=== PATIENT | male | born 1975 | race Caucasian/White ===

== ENCOUNTER 2016-03-29 17:42 | Emergency (ER) | payer SELFPAY ==
[~2016-03-29] VITALS: Ht 165.1 cm; Wt 55.3 kg
[~2016-03-29 17:42] MED LIST: Flexeril; HYDR1CAP2 PO; HYDR25CA5 PO; NAPR500T PO; NAPR500T3 PO; flexeril PO
--- OUTSIDE RECORDS SUMMARY | 2016-03-29 17:46 | XMS REPORT | Continuity of Care Document ---
Author Author [facility] Organization [facility] Address Unknown Phone Unavailable Care Team Providers Care Housing Property Manager Name Role Phone [facility] PCP Insurance Providers Payer Name Policy Number Subscriber Name Relationship Work Comp [id number] Emili Sims 20 Self / Same As Patient Advance Directives Directive Response Recorded Date/Time Advance Directives No 11/26/15 5:33am Health Care Power of Philosophy Specialist No 11/26/15 5:33am Organ Donor No 11/26/15 5:33am Resuscitation Status Full Code 11/26/15 5:33am Chief Complaint and Reason for Visit Chief Complaint General Problems/Pain Reason for Visit paracervical spasm Problems Active Problems Medical Problem Onset Date Status Anxiety hyperventilation Unknown Acute Anxiety hyperventilation Unknown Acute Muscle strain Unknown Acute Medications Current Home Medications Medication Dose Units Route Directions Days/Qty Instructions Start Date Naproxen 500 Mg 500 Mg Oral Twice A Day 60 11/26/15 [Flexeril] 10 Twice A Day 20 11/26/15 Past Home Medications Medication Directions Ordered Status Acetaminophen/Hydrocodone Bitart (Lorcet-Hd) 1 Each Capsule, 2 Each Oral Q6hr Prn 11/02/09 Discontinued Hydroxyzine Pamoate 25 Mg Capsule, 25 Mg Oral Every 6 Hours 11/19/13 Discontinued Naproxen 500 Mg Tablet, 500 Mg Oral Twice A Day as needed for Pain 07/27/15 Discontinued [Flexeril] , 5 Mg Oral Three Times A Day as needed for Pain 07/27/15 Discontinued Social History Social History Problem Response Recorded Date/Time Alcohol Use Denies Use 07/27/2015 2:33pm Recreational Drug Use No 07/27/2015 2:33pm Recent Foreign Travel No 11/26/2015 5:33am Recent Infectious Disease Exposure No 11/26/2015 5:33am Hospitalization with Isolation Denies 11/26/2015 5:33am Sexually Transmitted Disease No 11/26/2015 5:33am Smoking Status Current Everyday Smoker 11/26/2015 5:33am Type Used Cigarettes 11/26/2015 5:33am Recent Hopitalizations No 11/26/2015 5:33am Sexually Transmitted Disease No 11/26/2015 5:33am Hospitalization with Isolation Denies 11/26/2015 5:33am Query Response Start Date Stop Date Smoking Status Current Everyday Smoker Hospital Discharge Instructions No hospital discharge instructions. Plan of Care Discharge Date 11/26/15 7:22am Disposition 01 HOME, SELF-CARE Condition at Discharge Stable/Unchanged Instructions/Education Provided Cervical Spine Strain (ED) Prescriptions See Medication Section Referrals [facility] - Primary Care Physician Additional Instructions/Education All discharge instructions reviewed with patient and/or family. Voiced understanding. Use heat to the neck area every 4 hours. Keep in neutral position as discussed Take medications as prescribed You are to return to work Sunday. If you are unable to do so you need to be seen at occupational health. Functional Status No functional status results. Allergies, Adverse Reactions, Alerts No known allergies. Immunizations No immunization records. Vital Signs Acute Vital Signs Vital Response Date/Time Temperature (Fahrenheit) 96.0 degrees F (97.6 - 99.5) 11/26/2015 5:33am Temperature (Calculated Celsius) 35.68058 degrees C (36.4 - 37.5) 11/26/2015 5:33am Temperature Source Temporal 11/26/2015 5:33am Pulse Rate (adult) 50 bpm (60 - 90) 11/26/2015 7:25am Respiratory Rate 18 bpm (12 - 24) 11/26/2015 7:25am O2 Sat by Pulse Oximetry 99 % (88 - 100) 11/26/2015 7:25am Blood Pressure 114/79 mm Hg 11/26/2015 7:25am Blood Pressure Mean 99 mm Hg 11/26/2015 5:33am Pain Numeric Pain Scale 10-Worst Possible Pain 11/26/2015 5:33am Pain Numeric Pain Scale 10-Worst Possible Pain 11/26/2015 5:33am Height (Feet) 5 feet 11/26/2015 5:33am Height (Inches) 5 inches 11/26/2015 5:33am Height (Calculated Centimeters) 165.997271 cm 11/26/2015 5:33am Weight (Pounds) 117 pounds 11/26/2015 5:33am Weight (Calculated Kilograms) 53.422123 kilograms 11/26/2015 5:33am Capillary Refill Capillary Refill Less Than 3 Seconds 11/26/2015 5:33am Height 5 ft 5 in Weight 117 lb Body Mass Index 19.5 kg/m^2 Results No known relevant diagnostic tests, laboratory data and/or discharge summary. Procedures No known history of procedures. Encounters Encounter Location Arrival/Admit Date Discharge/Depart Date Attending Provider Departed Emergency Room [facility] 11/26/15 5:26am 11/25 7:22am ELVIRA MARINO MD Recent Diagnosis
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
[2016-03-29] MEDS ORDERED: HYDROcodone/APAP 5 MG/325 MG (LORTAB) TAB PO ONE (18:15)
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
[2016-03-29] MEDS ORDERED: flexeril PO (18:35)
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
[2016-03-29 18:42] VITALS: BP 125/74
== END 2016-03-29 18:42 | disposition home or self-care (01) ==
LOC: EDUNIT# 17:42 → ER 17:43
DX: S39.012A Strain of muscle, fascia and tendon of lower back, initial encounter (principal); S16.1XXA Strain of muscle, fascia and tendon at neck level, initial encounter; F17.210 Nicotine dependence, cigarettes, uncomplicated; V53.5XXA Driver of pick-up truck or van injured in collision with car, pick-up truck or van in traffic accident, initial encounter; Y92.414 Local residential or business street as the place of occurrence of the external cause; Y99.8 Other external cause status
CPT/HCPCS: 70450; 71010; 72100; 72125

== ENCOUNTER 2017-01-10 08:17 | Emergency (ER) | payer SELFPAY ==
[~2017-01-10] VITALS: Ht 167.6 cm; Wt 54.4 kg
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
--- OUTSIDE RECORDS SUMMARY | 2017-01-10 08:24 | XMS REPORT ---
Author Author LAN MAYA [facility] Address [address] [place] [address] Care Team Providers Care Title I Instructional Assistant Name Role Phone LAN MAYA Unavailable PROBLEMS Type Condition ICD9-CM Code [id number] Code Onset Dates Condition Status SNOMED Code Problem Disturbance of skin sensation 782.0 Active 519985320 Assessment Tooth abscess K04.7 Feb, Active 748874574 Problem Hemoptysis 786.30 Active 00950784 Problem Fatigue 780.79 Active 56201540 Problem Pain in joint, upper arm 719.42 Active 182786014 Problem Lumbago 724.2 Active 756418634 Problem Numbness in both hands 782.0 Active 797311970 Problem Numbness in both legs 782.0 Active 092154913 ALLERGIES Substance Reaction Event Type Date Status N.K.D.A. Unknown Non Drug Allergy Feb, Unknown SOCIAL HISTORY No smoking Hx information available PLAN OF CARE VITAL SIGNS Height 65 in 2016-03-02 Weight 122.9 lbs 2016-03-02 Heart Rate 72 bpm 2016-03-02 Respiratory Rate 16 2016-03-02 BMI 20.45 kg/m2 2016-03-02 Blood pressure systolic 110 mmHg 2016-03-02 Blood pressure diastolic 82 mmHg 2016-03-02 MEDICATIONS Medication Instructions Dosage Frequency Start Date End Date Duration Status Amoxicillin 500 MG Orally 3 times a day 1 capsule 8h Feb, Feb, 07 days Active RESULTS No Results PROCEDURES Procedure Date Ordered Related Diagnosis Body Site Office Visit, Est Pt., Level 2 Mar 02, 2016 IMMUNIZATIONS No Known Immunizations
--- OUTSIDE RECORDS SUMMARY | 2017-01-10 08:24 | XMS REPORT ---
Author Author LIZ Barcenas [facility] Address Unknown Care Team Providers Care Technical Support Internship Name Role Phone chinoLIZ Ricks Unavailable PROBLEMS Type Condition ICD9-CM Code [id number] Code Onset Dates Condition Status SNOMED Code Problem Disturbance of skin sensation 782.0 Active 490388646 Problem Fatigue 780.79 Active 71725733 Problem Hemoptysis 786.30 Active 20981259 Problem Lumbago 724.2 Active 608723081 Problem Pain in joint, upper arm 719.42 Active 664203166 Problem Numbness in both hands 782.0 Active 441999994 Problem Numbness in both legs 782.0 Active 976279228 ALLERGIES Substance Reaction Event Type Date Status N.K.D.A. Unknown Non Drug Allergy Mar, Unknown SOCIAL HISTORY No smoking Hx information available PLAN OF CARE Activity Details Follow Up prn Reason:1 hr multi te VITAL SIGNS MEDICATIONS Medication Instructions Dosage Frequency Start Date End Date Duration Status [place] 5-325 MG Orally every 6 hrs 1 tablet as needed 6h Mar, Mar, 4 days Active Amoxicillin 500 MG Orally 4 times a day 1 capsule 6h Mar, Mar, 7 days Active RESULTS No Results PROCEDURES Procedure Date Ordered Related Diagnosis Body Site COMP ORAL EVALUATION - NEW/EST PT Apr 04, 2016 PANORAMIC FILM SEE ALSO CODE 12409 Apr 04, 2016 IMMUNIZATIONS No Known Immunizations
[2017-01-10] MEDS ORDERED: ASPIRIN 81 MG CHEW (CHILDREN'S ASA) PO ONE (08:45)
[2017-01-10 08:52] LABS: BASOPHILS % (AUTO) 0 % (0-10); EOSINOPHILS # (AUTO) 0.1 10^3/uL (0.0-0.3); EOSINOPHILS % (AUTO) 2 % (0-10); LYMPHOCYTES # (AUTO) 1.3 X 10^3 (1.0-4.0); LYMPHOCYTES % (AUTO) 18 % (12-44); MEAN CORPUSCULAR HEMOGLOBIN 31 PG (25-34); MEAN CORPUSCULAR HGB CONC 34 G/DL (32-36); MEAN CORPUSCULAR VOLUME 89 FL (80-99); MEAN PLATELET VOLUME 9.7 FL (7.4-10.4); MONOCYTES # (AUTO) 0.8 X 10^3 (0.0-1.0); MONOCYTES % (AUTO) 11 % (0-12); NEUTROPHILS # (AUTO) 5.1 X 10^3 (1.8-7.8); NEUTROPHILS % (AUTO) 69 % (42-75); PLATELET COUNT 296 10^3/uL (130-400); RED BLOOD COUNT 4.71 10^6/uL (4.35-5.85); WHITE BLOOD COUNT 7.3 10^3/uL (4.3-11.0)
[2017-01-10 08:59] LABS: BILIRUBIN,URINE NEGATIVE (NEGATIVE); KETONES,URINE NEGATIVE (NEGATIVE); LEUKOCYTE ESTERASE ,URINE NEGATIVE (NEGATIVE); NITRITE,URINE NEGATIVE (NEGATIVE); PH,URINE 8 (5-9); PROTEIN,URINE NEGATIVE (NEGATIVE); UROBILINOGEN,URINE NORMAL (NORMAL)
[2017-01-10 09:01] LABS: INR 1.1 (0.8-1.4); PROTHROMBIN TIME PATIENT 14.3 SEC (12.2-14.7)
--- NOTE | 2017-01-10 09:03 | Diagnostic Imaging Report ---
Portable upright radiograph of the chest. INDICATION: Chest discomfort. FINDINGS: The lungs are clear. The heart size is normal. There is no effusion or pneumothorax. The mediastinum and ivonne appear unremarkable. IMPRESSION: Unremarkable exam. Dictated by: Dictated on workstation # [id number]
[2017-01-10 09:10] LABS: SQUAMOUS EPITHELIAL CELL,UR RARE /HPF
[2017-01-10 09:17] LABS: ALANINE AMINOTRANSFERASE 9 U/L (0-55); AMYLASE 46 U/L (25-125); ANION GAP 9 MMOL/L (5-14); ASPARTATE AMINO TRANSFERASE 12 U/L (5-34); BILIRUBIN,TOTAL 0.5 MG/DL (0.1-1.0); BLOOD UREA NITROGEN 11 MG/DL (7-18); BUN/CREATININE RATIO 14; CARBON DIOXIDE 20 MMOL/L (21-32); CHLORIDE 105 MMOL/L (98-107); CREATININE SERUM 0.81 MG/DL (0.60-1.30); GFR ESTIMATED > 60; GLUCOSE 107 MG/DL (70-105); LIPASE 17 U/L (8-78); MAGNESIUM 1.8 MG/DL (1.8-2.4); POTASSIUM 4.7 MMOL/L (3.6-5.0); SODIUM 134 MMOL/L (135-145)
[2017-01-10 09:23] LABS: MYOGLOBIN SERUM 25.4 NG/ML (10.0-92.0)
--- NOTE | 2017-01-10 09:49 | ED Chest Pain ---
General Chief Complaint: Chest Pain Stated Complaint: CHEST DISCOMFORT SINCE SUNDAY/GROIN PAIN Nursing Triage Note: PT CO OF CHEST PAIN EPIGASTRIC AREA AND L GROIN PAIN STARTED SUNDAY 1030AM AND HAS BEEN CONSTANT. STATES ATE SPAGHETTI BEFORE PAIN STARTED, DESCRIBES C/P THROBBING 01/02 AND L GROIN PAIN SHARP 12/03 Nursing Sepsis Screen: No Definite Risk Source: patient Exam Limitations: no limitations History of Present Illness Time seen by provider: 08:58 Initial Comments Here with complaint of epigastric pain that going on for a few days and also left groin pain that has been going on for months or longer. Reports taking ibuprofen several times daily for his teeth problem. 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 He states this makes the pain in his groin worse. Denies nausea or vomiting. Pain worsened after eating spaghetti the other day. Denies breathing problems. Timing/Duration: 2-3 days Severity/Quality: moderate, ingestion Location: substernal, epigastric Radiation: no radiation Activities at Onset: none Prior CP/Workup: no prior chest pain ASA po CURBSTONE SETTER: No NTG SL CURBSTONE SETTER: No Associated Symptoms: No abdominal pain, No back pain, No nausea/vomiting, No shortness of breath, No weakness Allergies and Home Medications Allergies Coded Allergies: No Known Drug Allergies (Unverified , 11/02/09) Home Medications No Active Prescriptions or Reported Meds Review of Systems Constitutional: see HPI, No chills, No fever EENTM: No Symptoms Reported Respiratory: No Symptoms Reported Cardiovascular: Chest Pain, Denies Lightheadedness, Denies Palpitations Gastrointestinal: See HPI, Abdominal Pain, Denies Diarrhea, Denies Nausea, Denies Vomiting Genitourinary: See HPI, Denies Discharge, Pain (left groin area) Musculoskeletal: no symptoms reported Skin: no symptoms reported Psychiatric/Neurological: No Symptoms Reported Endocrine: No Symptoms Reported All Other Systems Reviewed Negative Unless Noted: Yes Past Mggplej-Dcpbux-Byotrg Hx Patient Social History Alcohol Use: Rarely Uses Recreational Drug Use: No Smoking Status: Current Everyday Smoker Type Used: Cigarettes Recent Foreign Travel: No Contact w/Someone Who Travel: No Recent Infectious Disease Expo: No Recent Hopitalizations: No Physical Abuse: No Sexual Abuse: No Seasonal Allergies Seasonal Allergies: No Surgeries History of Surgeries: No Respiratory History of Respiratory Disorde: No Cardiovascular History of Cardiac Disorders: No Neurological History of Neurological Disord: No Reproductive System Hx Reproductive Disorders: No Sexually Transmitted Disease: No Gastrointestinal History of Gastrointestinal Di: No Musculoskeletal History of Musculoskeletal Dis: No Musculoskeletal Disorders: Rheumatoid Arthritis Endocrine History of Endocrine Disorders: No Cancer History of Cancer: No Psychosocial History of Psychiatric Problem: No Suicide Risk Score: 0 Integumentary History of Skin or Integumenta: No Blood Transfusions History of Blood Disorders: No Reviewed Nursing Assessment Reviewed/Agree w Nursing PMH: Yes Family Medical History Significant Family History: No Pertinent Family Hx Physical Exam Vital Signs Vital Sign - Last 12Hours 01/10/17 08:30 Temp 97.4 Pulse 67 Resp 12 B/P (MAP) 112/93 Pulse Ox 97 O2 Delivery Room Air Capillary Refill : Less Than 3 Seconds General Appearance: No Apparent Distress, WD/WN HEENT: PERRL/EOMI, Pharynx Normal, Other (very poor dentition overall) Neck: Non Tender, Supple Respiratory: Lungs Clear, Normal Breath Sounds Cardiovascular: Regular Rate, Rhythm, No Murmur Gastrointestinal: Non Tender, Soft Genital/Rectal: Normal Genital Exam, Other (mild tenderness to the left inguinal region without significant hernia noted and certainly no incarceration. ) Extremity: Normal Range of Motion, Non Tender Neurologic/Psychiatric: Alert, Oriented x3 Skin: Normal Color, Warm/Dry Progress/Results/Core Measures Results/Orders Lab Results Laboratory Tests Test 01/10/17 08:40 01/10/17 08:50 Range/Units White Blood Count 7.3 4.3-11.0 10^3/uL Red Blood Count 4.71 4.35-5.85 10^6/uL Hemoglobin 14.5 13.3-17.7 G/DL Hematocrit 42 40-54 % Mean Corpuscular Volume 89 80-99 FL Mean Corpuscular Hemoglobin 31 25-34 PG Mean Corpuscular Hemoglobin Concent 34 32-36 G/DL Red Cell Distribution Width 13.0 10.0-14.5 % Platelet Count 296 130-400 10^3/uL Mean Platelet Volume 9.7 7.4-10.4 FL Neutrophils (%) (Auto) 69 42-75 % Lymphocytes (%) (Auto) 18 12-44 % Monocytes (%) (Auto) 11 0-12 % Eosinophils (%) (Auto) 2 0-10 % Basophils (%) (Auto) 0 0-10 % Neutrophils # (Auto) 5.1 1.8-7.8 X 10^3 Lymphocytes # (Auto) 1.3 1.0-4.0 X 10^3 Monocytes # (Auto) 0.8 0.0-1.0 X 10^3 Eosinophils # (Auto) 0.1 0.0-0.3 10^3/uL Basophils # (Auto) 0.0 0.0-0.1 10^3/uL Prothrombin Time 14.3 12.2-14.7 SEC INR Comment 1.1 0.8-1.4 Activated Partial Thromboplast Time 29 24-35 SEC D-Dimer < 0.27 0.00-0.49 UG/ML Sodium Level 134 L 135-145 MMOL/L Potassium Level 4.7 3.6-5.0 MMOL/L Chloride Level 105 98-107 MMOL/L Carbon Dioxide Level 20 L 21-32 MMOL/L Anion Gap 9 5-14 MMOL/L Blood Urea Nitrogen 11 7-18 MG/DL Creatinine 0.81 0.60-1.30 MG/DL Estimat Glomerular Filtration Rate > 60 BUN/Creatinine Ratio 14 Glucose Level 107 H 70-105 MG/DL Calcium Level 9.0 8.5-10.1 MG/DL Magnesium Level 1.8 1.8-2.4 MG/DL Total Bilirubin 0.5 0.1-1.0 MG/DL Aspartate Amino Transf (AST/SGOT) 12 5-34 U/L Alanine Aminotransferase (ALT/SGPT) 9 0-55 U/L Alkaline Phosphatase 51 40-136 U/L Myoglobin 25.4 10.0-92.0 NG/ML Troponin I < 0.30 <0.30 NG/ML Total Protein 6.0 L 6.4-8.2 GM/DL Albumin 4.0 3.2-4.5 GM/DL Amylase Level 46 25-125 U/L Lipase 17 8-78 U/L Urine Color YELLOW Urine Clarity CLEAR Urine pH 8 5-9 Urine Specific [place] 1.010 L 1.016-1.022 Urine Protein NEGATIVE NEGATIVE Urine Glucose (UA) NEGATIVE NEGATIVE Urine Ketones NEGATIVE NEGATIVE Urine Nitrite NEGATIVE NEGATIVE Urine Bilirubin NEGATIVE NEGATIVE Urine Urobilinogen NORMAL NORMAL MG/DL Urine Leukocyte Esterase NEGATIVE NEGATIVE Urine RBC (Auto) NEGATIVE NEGATIVE Urine RBC NONE /HPF Urine WBC NONE /HPF Urine Squamous Epithelial Cells RARE /HPF Urine Crystals NONE /LPF Urine Bacteria NEGATIVE /HPF Urine Casts NONE /LPF Urine Mucus NEGATIVE /LPF Urine Culture Indicated NO My Orders Orders - CRISTA MORILLO MD Cbc With Automated Diff (01/10/17 08:35) Magnesium (01/10/17 08:35) Chest 1 View, Ap/Pa Only (01/10/17 08:35) Ekg Tracing (01/10/17 08:35) Cardiac Profile 1 (01/10/17 08:35) Comprehensive Metabolic Panel (01/10/17 08:35) Myoglobin Serum (01/10/17 08:35) Protime With Inr (01/10/17 08:35) Partial Thromboplastin Time (01/10/17 08:35) O2 (01/10/17 08:35) Monitor-Rhythm Ecg Trace Only (01/10/17 08:35) Lipid Panel (01/11/17 06:00) Aspirin Chewable Tablet (Baby Aspirin Ch (01/10/17 08:45) Saline Lock/Iv-Start (01/10/17 08:35) Lipase (01/10/17 08:35) Amylase (01/10/17 08:35) Fibrin Degradation Products (01/10/17 08:35) Ua Culture If Indicated (01/10/17 08:35) Medications Given in ED Current Medications Medications Dose Ordered Sig/Deyvi Route Start Time Stop Time Status Last Admin Dose Admin Aspirin 324 mg ONCE ONCE PO 01/10/17 08:45 01/10/17 08:46 DC 01/10/17 09:31 324 MG Vital Signs/I&O Vital Sign - Last 12Hours 01/10/17 01/10/17 08:30 08:30 Temp 97.4 Pulse 67 Resp 12 B/P (MAP) 112/93 Pulse Ox 97 O2 Delivery Room Air Blood Pressure Mean: 99 Progress Note : Progress Note Seen and evaluated. EKG and chest x-ray ordered. Labs ordered. Genital exam performed. No significant inguinal hernia currently but tender at the inguinal canal. ASA 324 mg by mouth given. Monitor patient. GI cocktail given. 1005: Pain improving. I did have a long discussion with the patient about ibuprofen use as I believe this is causing his epigastric pain. Patient instructed to follow-up with dentist MARY for his teeth as well as [facility] for further evaluation of his stomach pain and inguinal pain. Discharged home with return precautions. Patient verbalize understanding instructions and agreement with plan. ECG Initial ECG Impression Date: Jan 10, 2017 Initial ECG Impression Time: 08:38 Initial ECG Rate: 64 Initial ECG Rhythm: Normal Sinus Initial ECG Intervals: Normal Initial ECG Impression: Normal Initial ECG Comparisson: No Previous ECG Available Comment Sinus rhythm with normal axis. No evidence of ST elevation [place]. No previous available for comparison. Interpreted by me. Diagnostic Imaging Diagonstic Imaging: Xray Plain Films/CT/US/NM/MRI: chest Comments NAME: EMILI SIMS [facility] REC#: [id number] PT STATUS: REG ER : 1975 PHYSICIAN: CRISTA MORILLO MD ADMIT DATE: 01/10/17/ER Signed Date of Exam: 01/10/17 CHEST 1 VIEW, AP/PA ONLY Portable upright radiograph of the chest. INDICATION: Chest discomfort. FINDINGS: The lungs are clear. The heart size is normal. There is no effusion or pneumothorax. The mediastinum and ivonne appear unremarkable. IMPRESSION: Unremarkable exam. Dictated by: Dictated on workstation # [id number] Dict: 01/10/17 0854 Trans: 01/10/1751 Interpreted by: RK TOMLINSON MD Electronically signed by: RK TOMLINSON MD 01/10/1751 Reviewed: Reviewed by Me Departure Impression Impression: Primary Impression: Chest pain Qualified Codes: R07.9 - Chest pain, unspecified Additional Impressions: Epigastric abdominal pain Left groin pain Disposition: 01 HOME, SELF-CARE Condition: Stable Departure-Patient Inst. Decision time for Depature: 10:10 Referrals: [facility] (PCP/Family) Primary Care Physician Patient Instructions: Acid Reflux (Gastroesophageal Reflux Disease), Adult (DC) , Chest Pain (DC), Inguinal and Femoral (Groin) Hernias Add. Discharge Instructions: All discharge instructions reviewed with patient and/or family. Voiced understanding. You should avoid ibuprofen for the next few days. When you do take ibuprofen, do not exceed 800 mg every 8 hours and preferably 600 mg every 8 hours for pain. You may take Tylenol 1000 mg every 8 hours as he did for pain. Drink plenty of fluids. You should initiate [id number] omeprazole 20 mg daily for 4-6 weeks and then further directions of your physician. You may also take Pepcid 20 mg once or twice daily as needed for stomach upset. Return for worse pain, fever, vomiting, weakness, breathing problems or other concerns as needed. Scripts No Active Prescriptions or Reported Meds CRISTA MORILLO MD Jan 10, 2017 09:49
[2017-01-10] MEDS ORDERED: ANTACID SUSP 30 ML UDC (MYLANTA) PO ONE (10:15)
[2017-01-10] MEDS ORDERED: LIDOCAINE 2% VISCOUS 15 ML UDC PO ONE (10:15)
[2017-01-10 10:24] VITALS: BP 105/79
== END 2017-01-10 10:24 | disposition home or self-care (01) ==
LOC: EDUNIT# 08:17 → ER 08:19
DX: R10.13 Epigastric pain (principal); R10.32 Left lower quadrant pain; R07.2 Precordial pain; M06.9 Rheumatoid arthritis, unspecified; F17.210 Nicotine dependence, cigarettes, uncomplicated
CPT/HCPCS: 36415; 71010; 80053; 81000; 82150; 83690; 83735; 83874; 84484; 85025; 85379; 85610; 85730; 93005; 93041

== ENCOUNTER → 2017-06-20 | Outpatient (REF) ==
[~2017-06-20] MED LIST changes: +NAPR-1071 PO; +NAPR-915 PO; -NAPR500T PO; -NAPR500T3 PO
--- NOTE | 2017-06-20 11:25 | Diagnostic Imaging Report ---
INDICATION: Fall on to right shoulder and pain. TIME OF EXAM: 11:35 AM 3 views of the right shoulder were obtained. FINDINGS: The glenohumeral and acromioclavicular alignment are normal. Acromiohumeral space is normal. No fracture or dislocation is identified. IMPRESSION: No acute bony abnormality is detected. Dictated by: Dictated on workstation # [id number]
== END | disposition home or self-care (01) ==
LOC: OCC 11:06
PROVIDERS: ATTEND Nurse Practitioner Family
CPT/HCPCS: 73030

== ENCOUNTER 2019-02-17 07:03 | Emergency (ER) | payer SELFPAY ==
[~2019-02-17] VITALS: Ht 165.1 cm; Wt 51.3 kg
[2019-02-17 07:25] LABS: BASOPHILS % (AUTO) 1 % (0-10); EOSINOPHILS # (AUTO) 0.2 10^3/uL (0.0-0.3); EOSINOPHILS % (AUTO) 3 % (0-10); HEMATOCRIT 44 % (40-54); HEMOGLOBIN 14.9 G/DL (13.3-17.7); LYMPHOCYTES % (AUTO) 17 % (12-44); MEAN CORPUSCULAR HEMOGLOBIN 31 PG (25-34); MEAN CORPUSCULAR HGB CONC 34 G/DL (32-36); MEAN CORPUSCULAR VOLUME 90 FL (80-99); MONOCYTES # (AUTO) 0.7 X 10^3 (0.0-1.0); MONOCYTES % (AUTO) 12 % (0-12); NEUTROPHILS % (AUTO) 67 % (42-75); PLATELET COUNT 313 10^3/uL (130-400); RED CELL DISTRIBUTION WIDTH 13.2 % (10.0-14.5)
[2019-02-17 07:40] LABS: ALANINE AMINOTRANSFERASE 16 U/L (0-55); ALBUMIN 4.3 GM/DL (3.2-4.5); ALKALINE PHOSPHATASE 56 U/L (40-136); BILIRUBIN,TOTAL 0.3 MG/DL (0.1-1.0); BUN/CREATININE RATIO 12; CALCIUM 9.2 MG/DL (8.5-10.1); CARBON DIOXIDE 22 MMOL/L (21-32); CHLORIDE 105 MMOL/L (98-107); CREATININE SERUM 0.84 MG/DL (0.60-1.30); GFR ESTIMATED > 60; GLUCOSE 103 MG/DL (70-105); POTASSIUM 4.5 MMOL/L (3.6-5.0); SODIUM 138 MMOL/L (135-145)
[2019-02-17] MEDS ORDERED: KETOROLAC 30 MG/ML VIAL IVP STA (08:13)
[2019-02-17] MEDS ORDERED: LACTATED RINGERS 1,000 ML IV ONE (08:13)
--- NOTE | 2019-02-17 08:15 | ED General ---
General Chief Complaint: General Problems/Pain Stated Complaint: HEAD PAIN;CHEST PAIN Nursing Triage Note: AAMB TO ROOM C/O CHEST PAIN X 1 WEEK, HEADACEH SINCE YESTERDAY AND R ANKLE PIAN FOR 3 DAY'S NO INJURY Nursing Sepsis Screen: No Definite Risk Source of Information: Patient Exam Limitations: No Limitations History of Present Illness Date Seen by Provider: Feb 17, 2019 Time Seen by Provider: 07:59 Initial Comments Here with report of chest tightness for the last few days as well as headache since yesterday. Also complains of a variety of other pain complaints but those are vague. Denies nausea, vomiting, diarrhea but states he does urinate a lot. He did not mention the ankle pain to the as a concern did have a mild hernia that is still there that he was thinking about. It is not worse. Main concern is the chest discomfort Timing/Duration: 1 Week, Changing Over Time Severity: Moderate Associated Systoms: Cough; No Fever/Chills; Headaches; No Nausea/Vomiting, No Shortness of Air, No Weakness Allergies and Home Medications Allergies Coded Allergies: No Known Drug Allergies (Unverified , 11/02/09) Home Medications No Active Prescriptions or Reported Meds Patient Home Medication List Home Medication List Reviewed: Yes Review of Systems Review of Systems Constitutional: see HPI; No chills, No fever EENTM: no symptoms reported Respiratory: cough; No short of breath Cardiovascular: chest pain; No edema Gastrointestinal: No abdominal pain, No diarrhea, No nausea, No vomiting Genitourinary: see HPI Musculoskeletal: no symptoms reported Skin: no symptoms reported All Other Systems Reviewed Negative Unless Noted: Yes Past Rsmskju-Wefbmw-Swqrez Hx Past Med/Social Hx: Reviewed Nursing Past Med/Soc Hx Patient Social History Alcohol Use: Occasionally Uses Recreational Drug Use: No Smoking Status: Current Everyday Smoker Type Used: Cigarettes Recent Foreign Travel: No Contact w/Someone Who Travel: No Recent Infectious Disease Expo: No Recent Hopitalizations: No Seasonal Allergies Seasonal Allergies: No Past Medical History Surgeries: No Respiratory: No Cardiac: No Neurological: No Reproductive Disorders: No Sexually Transmitted Disease: No Gastrointestinal: No Musculoskeletal: No Rheumatoid Arthritis Endocrine: No Cancer: No Psychosocial: No Integumentary: No Blood Disorders: No Family Medical History Reviewed Nursing Family Hx No Pertinent Family Hx Physical Exam Vital Signs Vital Signs - First Documented 02/17/19 07:04 Temp 36.1 Pulse 62 Resp 18 B/P (MAP) 127/78 (94) Capillary Refill : Less Than 3 Seconds Height, Weight, BMI Height: 5'6.00" Weight: 120lbs. oz. 54.366001js; 18.00 BMI Method:Estimated General Appearance: No Apparent Distress, WD/WN HEENT: PERRL/EOMI, Pharynx Normal Neck: Non Tender, Supple Respiratory: Lungs Clear, Normal Breath Sounds Cardiovascular: Regular Rate, Rhythm, No Murmur Back: Normal Inspection, No CVA Tenderness, No Vertebral Tenderness Extremity: Normal Range of Motion, Non Tender Neurologic/Psychiatric: Alert, Oriented x3 Skin: Normal Color, Warm/Dry Progress/Results/Core Measures Suspected Sepsis Recent Fever Within 48 Hours: No Infection Criteria Present: None New/Unexplained Altered Menta: No Sepsis Screen: No Definite Risk SIRS Temperature: Pulse: 62 Respiratory Rate: 18 Laboratory Tests 02/17/19 07:11: White Blood Count 6.0 Blood Pressure 127 /78 Mean: 94 Laboratory Tests 02/17/19 07:11: Creatinine 0.84, Platelet Count 313, Total Bilirubin 0.3 Results/Orders Lab Results Laboratory Tests Test 02/17/19 07:11 02/17/19 08:10 Range/Units White Blood Count 6.0 4.3-11.0 10^3/uL Red Blood Count 4.88 4.35-5.85 10^6/uL Hemoglobin 14.9 13.3-17.7 G/DL Hematocrit 44 40-54 % Mean Corpuscular Volume 90 80-99 FL Mean Corpuscular Hemoglobin 31 25-34 PG Mean Corpuscular Hemoglobin Concent 34 32-36 G/DL Red Cell Distribution Width 13.2 10.0-14.5 % Platelet Count 313 130-400 10^3/uL Mean Platelet Volume 9.0 7.4-10.4 FL Neutrophils (%) (Auto) 67 42-75 % Lymphocytes (%) (Auto) 17 12-44 % Monocytes (%) (Auto) 12 0-12 % Eosinophils (%) (Auto) 3 0-10 % Basophils (%) (Auto) 1 0-10 % Neutrophils # (Auto) 4.0 1.8-7.8 X 10^3 Lymphocytes # (Auto) 1.0 1.0-4.0 X 10^3 Monocytes # (Auto) 0.7 0.0-1.0 X 10^3 Eosinophils # (Auto) 0.2 0.0-0.3 10^3/uL Basophils # (Auto) 0.0 0.0-0.1 10^3/uL Sodium Level 138 135-145 MMOL/L Potassium Level 4.5 3.6-5.0 MMOL/L Chloride Level 105 98-107 MMOL/L Carbon Dioxide Level 22 21-32 MMOL/L Anion Gap 11 5-14 MMOL/L Blood Urea Nitrogen 10 7-18 MG/DL Creatinine 0.84 0.60-1.30 MG/DL Estimat Glomerular Filtration Rate > 60 BUN/Creatinine Ratio 12 Glucose Level 103 70-105 MG/DL Calcium Level 9.2 8.5-10.1 MG/DL Corrected Calcium 9.0 8.5-10.1 MG/DL Total Bilirubin 0.3 0.1-1.0 MG/DL Aspartate Amino Transf (AST/SGOT) 17 5-34 U/L Alanine Aminotransferase (ALT/SGPT) 16 0-55 U/L Alkaline Phosphatase 56 40-136 U/L Troponin I < 0.028 <0.028 NG/ML Total Protein 7.0 6.4-8.2 GM/DL Albumin 4.3 3.2-4.5 GM/DL Urine Color YELLOW Urine Clarity CLEAR Urine pH 7.0 5-9 Urine Specific [place] 1.010 L 1.016-1.022 Urine Protein NEGATIVE NEGATIVE Urine Glucose (UA) NEGATIVE NEGATIVE Urine Ketones NEGATIVE NEGATIVE Urine Nitrite NEGATIVE NEGATIVE Urine Bilirubin NEGATIVE NEGATIVE Urine Urobilinogen 0.2 < = 1.0 MG/DL Urine Leukocyte Esterase NEGATIVE NEGATIVE Urine RBC (Auto) NEGATIVE NEGATIVE Urine RBC NONE /HPF Urine WBC NONE /HPF Urine Crystals NONE /LPF Urine Bacteria NEGATIVE /HPF Urine Casts NONE /LPF Urine Mucus NEGATIVE /LPF Urine Culture Indicated NO Micro Results Microbiology 02/17/19 Influenza Types A,B Antigen (MIKAEL) - Final, Complete My Orders Orders - CRISTA MORILLO MD Ed Iv/Invasive Line Start (02/17/19 07:18) Ekg Tracing (02/17/19 07:18) Chest Pa/Lat (2 View) (02/17/19 07:18) Cbc With Automated Diff (02/17/19 07:18) Comprehensive Metabolic Panel (02/17/19 07:18) Troponin I (02/17/19 07:18) Influenza A And B Antigens (02/17/19 07:18) Ua Culture If Indicated (02/17/19 08:01) Ed Iv/Invasive Line Start (02/17/19 08:13) Lactated Ringers (Lr 1000 Ml Iv Solution (02/17/19 08:13) Ketorolac Injection (Toradol Injection) (02/17/19 08:13) Acetaminophen Tablet/Caplet (Tylenol T (02/17/19 09:12) Medications Given in ED Current Medications Medications Dose Ordered Sig/Deyvi Route Start Time Stop Time Status Last Admin Dose Admin Lactated Ringer's 1,000 ml @ 0 mls/hr Q0M ONCE IV 02/17/19 08:13 02/17/19 08:15 DC 02/17/19 08:18 1,000 MLS/HR Vital Signs/I&O 02/17/19 07:04 Temp 36.1 Pulse 62 Resp 18 B/P (MAP) 127/78 (94) Capillary Refill : Less Than 3 Seconds Blood Pressure Mean: 94 POS Progress Note : Progress Note Seen and evaluated. IV, labs, EKG and chest x-ray ordered. Influenza screen ordered. Monitor patient. His main complaint is related to headache and chest discomfort. We will focus on that. I discussed that with the patient as well as follow-up. He usually follows up with community health. He is walking without difficulty and walked to and from the bathroom without pain or difficulty. He is not limping. He is not having any pain when transitioning from lying to standing. Vital signs within normal. 0815: Toradol 30 mg IV for headache and LR 1 L bolus. Monitor patient. 0930: Tylenol 650 mg by mouth. No acute findings on any of the evaluation. All of it is normal. I did discuss this with the patient. I instructed him for follow-up community health. Discharged home with return precautions. Patient verbalize understanding instructions and agreement with plan ECG Initial ECG Impression Date: Feb 17, 2019 Initial ECG Impression Time: 07:27 Initial ECG Rate: 60 Initial ECG Rhythm: Normal Sinus Initial ECG Impression: Normal Initial ECG Comparisson: Unchanged Comment Normal sinus rhythm with normal axis. No evidence of ST elevation [place]. Similar to previous of 01/10/17. Interpreted by me. Diagnostic Imaging Diagonstic Imaging: Xray Plain Films/CT/US/NM/MRI: chest Comments [facility]. POS [place], [place] POS NAME: EMILI SIMS [facility] REC#: [id number] PT STATUS: REG ER : 1975 PHYSICIAN: CRISTA MORILLO MD ADMIT DATE: 02/17/19/ER Draft POSDate of Exam:02/17/19 CHEST PA/LAT (2 VIEW) INDICATION: Head and chest pain. FINDINGS: There is air trapping in a symmetric fashion with flattening of the diaphragms and mild expansion of the retrosternal airspaces. No bronchiectasis. No significant airway thickening or peribronchial cuffing. No pneumonia. No effusion, pneumothorax, or pneumomediastinum. IMPRESSION: Clear mildly hyperexpanded lungs; otherwise, negative. Dictated on workstation # [id number] Dict: 02/17/19 0837 Trans: 02/17/19 0842 [id number] Interpreted by: RHONDA DUFFY Electronically signed by: Departure Impression Primary Impression: Myalgia Additional Impression: Chest pain Qualified Codes: R07.9 - Chest pain, unspecified Disposition: 01 HOME, SELF-CARE Condition: Stable Departure-Patient Inst. Decision time for Depature: 09:49 Referrals: [facility] (PCP/Family) Primary Care Physician Patient Instructions: Chest Pain (DC), Muscle and Bone Pain (DC) Add. Discharge Instructions: All discharge instructions reviewed with patient and/or family. Voiced understanding. You may take ibuprofen 600 mg every 8 hours as needed for pain. He may take Tylenol/acetaminophen 1000 mg every 8 hours as needed for pain. Follow up with [facility] for recheck and further evaluation and for further care regarding your ankle and your hernia as needed. Return for worse pain, fever, vomiting, weakness, breathing problems or other concerns as needed. Scripts No Active Prescriptions or Reported Meds Work/School Note: Work Release Form Date Seen in the Emergency Department: Feb 17, 2019 Return to Work: Feb 18, 2019 Restrictions: No Restrictions CRISTA MORILLO MD Feb 17, 2019 08:15 POS
[2019-02-17 08:20] LABS: BILIRUBIN,URINE NEGATIVE (NEGATIVE); CLARITY,URINE CLEAR; COLOR,URINE YELLOW; GLUCOSE, URINE (UA) NEGATIVE (NEGATIVE); KETONES,URINE NEGATIVE (NEGATIVE); LEUKOCYTE ESTERASE ,URINE NEGATIVE (NEGATIVE); NITRITE,URINE NEGATIVE (NEGATIVE); PROTEIN,URINE NEGATIVE (NEGATIVE)
[2019-02-17 08:27] LABS: BACTERIA,URINE NEGATIVE /HPF
--- NOTE | 2019-02-17 08:42 | Diagnostic Imaging Report ---
INDICATION: Head and chest pain. FINDINGS: There is air trapping in a symmetric fashion with flattening of the diaphragms and mild expansion of the retrosternal airspaces. No bronchiectasis. No significant airway thickening or peribronchial cuffing. No pneumonia. No effusion, pneumothorax, or pneumomediastinum. IMPRESSION: Clear mildly hyperexpanded lungs; otherwise, negative. Dictated by: Dictated on workstation # [id number]
--- NOTE | 2019-02-17 09:05 | NUR ---
REPORTS THAT PAIN NOT ANY BETTER AFTER TORDOL. FLUIDS INFUSED.
[2019-02-17] MEDS ORDERED: ACETAMINOPHEN 325 MG TABLET PO STA (09:12)
[2019-02-17 09:55] VITALS: BP 129/96
== END 2019-02-17 09:55 | disposition home or self-care (01) ==
LOC: EDUNIT# 07:03 → ER 07:04
DX: R07.89 Other chest pain (principal); M79.10 Myalgia, unspecified site; M06.9 Rheumatoid arthritis, unspecified; F17.210 Nicotine dependence, cigarettes, uncomplicated
CPT/HCPCS: 36415; 71046; 80053; 81000; 84484; 85025; 87804; 93005; 96361; 96374

== ENCOUNTER 2019-05-09 05:33 | Outpatient (CLI) | payer OTHER ==
[~2019-05-09] VITALS: Ht 165 cm; Wt 54.0 kg
== END 2019-05-09 10:34 | disposition home or self-care (01) ==
LOC: PREOP 05:33
PROVIDERS: ATTEND Surgery
DX: Z01.818 Encounter for other preprocedural examination (principal)

== ENCOUNTER 2019-05-15 07:50 | Day surgery (SDC) | payer OTHER ==
[2019-05-15] VITALS (9 sets, daily range): BP systolic 98–118; BP diastolic 66–88
[~2019-05-15] VITALS: Ht 165 cm; Wt 54.0 kg
--- NOTE | 2019-05-15 08:03 | Progress Note-Pre Operative ---
Pre-Operative Progress Note H&P Reviewed The H&P was reviewed, patient examined and no changes noted. Date Seen by Provider: May 15, 2019 Time Seen by Provider: 08:03 Date H&P Reviewed: May 15, 2019 Time H&P Reviewed: 08:03 Pre-Operative Diagnosis: left inguinal hernia ENMANUEL ALEJANDRA DO May 15, 2019 08:03
[2019-05-15] MEDS ORDERED: LACTATED RINGERS 1,000 ML IV PRN (08:11)
[2019-05-15] MEDS ORDERED: ceFAZolin INJECTION 1,000 MG in WATER (STERILE) FOR INJECTION 10 ML IV ONE (08:15)
[2019-05-15] MEDS ORDERED: proPOfol 200 MG/20 ML (DIPRIVAN) VIAL IV ONE (08:40)
[2019-05-15] MEDS ORDERED: NEOSTIGMINE 3 MG/3 ML VIAL ONE (08:40)
[2019-05-15] MEDS ORDERED: ROCURONIUM 10 MG/ML 5 ML SYRINGE IV ONE (08:40)
[2019-05-15] MEDS ORDERED: GLYCOPYRROLATE 0.2 MG/ML (ROBINUL) 2 ML VIAL ONE (08:40)
[2019-05-15] MEDS ORDERED: SEVOFLURANE (ULTANE) 15 ML INHAL SOLN ONE ×2 (08:40→10:13)
[2019-05-15] MEDS ORDERED: MIDAZOLAM 2 MG/2 ML (VERSED) VIAL ONE (08:40)
[2019-05-15] MEDS ORDERED: DEXAMETHASONE 10 MG/ML (DECADRON) 1 ML VIAL ONE (08:40)
[2019-05-15] MEDS ORDERED: LIDOCAINE PF 2% 5 ML (XYLOCAINE) VIAL ONE (08:40)
[2019-05-15] MEDS ORDERED: ONDANSETRON 4 MG/2 ML (SDV) Z0FRAN ONE (08:40)
[2019-05-15] MEDS ORDERED: fentaNYL INJECTION 100 MCG/2 ML AMP ONE (08:40)
[2019-05-15] MEDS ORDERED: BUP/EPI 0.5% 1:200,000 (SENSORCAINE) 30 ML VIAL ONE (08:45)
--- NOTE | 2019-05-15 10:19 | Progress Note-Post Operative ---
Post-Operative Progess Note Surgeon (s)/Hook Puller (s) Surgeon ENMANUEL ALEJANDRA DO Hook Puller: Dr. Meyers Pre-Operative Diagnosis left inguinal hernia Post-Operative Diagnosis direct inguinal hernia Procedure & Operative Findings Date of Procedure 05/15/19 Procedure Performed/Findings open left inguinal hernia repari Anesthesia Type gen Estimated Blood Loss Estimated blood loss (mL): min Specimens/Packing Specimens Removed na ENMANUEL ALEJANDRA DO May 15, 2019 10:19
[2019-05-15] MEDS ORDERED: ACHD5005 PO (10:20)
[2019-05-15] MEDS ORDERED: DOCU-143 PO (10:20)
--- NOTE | 2019-05-15 10:21 | Discharge Inst-Simple/Standard ---
Discharge Inst-Standard Discharge Medications New, Converted or Re-Newed RX: RX on Chart Patient Instructions/Follow Up Plan of Care/Instructions/FU: 2 weeks Lucio Activity as Tolerated: No Discharge Diet: Regular Diet Other Inst to Patient Follow up Appt: Make appointment for 2 week. Instructions: No lifting greater than 10 pounds. No strenuous activity. May shower in 24 hours, no tub bath or soaking. Use incentive spirometer at home as directed. No Smoking Skin/Wound Care: You have special glue over incision it will fall off on its own. Symptoms to Report: Appetite Changes, Extremity Discoloration, Numbness/Tingling, Swelling Increased, Bleeding Excessive, Eyesight Changes, Pain Increased, Urine Color Change, Constipation(Persistent), Fever over 101 degree F, Pain/Pressure in chest, Urinating Difficulty, Cough Up/Vomit Blood, Heart Beat Irreg/Pounding, Pain/Pressure in jaw, Vaginal Bleeding Increase, Cramps in feet or legs, Lightheadedness, Pain/Pressure in shoulder, Diarrhea(Persistent), Memory Changes Suddenly, Questions/Concerns, Weight gain consecutive days, Dizziness/Fainting, Nausea/Vomiting, Shortness of Breath, Weight gain over 2 pounds If questions or concerns contact your physician Or seek help at emergency department. ENMANUEL LUCIO DO May 15, 2019 10:21
[2019-05-15] MEDS ORDERED: PROMETHAZINE INJ 25 MG/ML (PHENERGAN) AMP IVP ONE (10:45)
[2019-05-15] MEDS ORDERED: HYDROmorphone 2 MG/ML VIAL (DILAUDID) IV ONE (10:45)
[2019-05-15] MEDS ORDERED: MEPERIDINE (DEMEROL) INJ 50 MG/ML IVP ONE (10:45)
[2019-05-15] MEDS ORDERED: morphine INJ 10 MG/ML 1ML (SYR OR VIAL) IVP ONE (10:45)
[2019-05-15] MEDS ORDERED: ONDANSETRON 4 MG/2 ML (SDV) Z0FRAN IVP PRN (10:45)
--- NOTE | 2019-05-15 19:15 | OPERATIVE REPORT ---
DATE OF SERVICE: 05/15/2019 PREOPERATIVE DIAGNOSIS: Left inguinal hernia. POSTOPERATIVE DIAGNOSIS: Left direct inguinal hernia. PROCEDURE: Open left direct inguinal hernia repair. SURGEON: Enmanuel Lucio DO RAILROAD TRACK INSPECTOR: Dr. Meyers assisted in retraction, dissection, and closure. ANESTHESIA: General. ESTIMATED BLOOD LOSS: Minimal. COMPLICATIONS: None. INDICATIONS: The patient is a 43-year-old male with left inguinal hernia. He understands risks and benefits of procedure and wished to proceed with procedure. Consent was signed in the chart. DESCRIPTION OF PROCEDURE: The patient was taken to the operating suite, was prepped and draped in sterile fashion. Surgical pause was performed. Local anesthetic was infiltrated and a 15 blade scalpel was used to make a skin incision in the left lower quadrant. Cautery was used to dissect down the external oblique, which was then opened down through the external ring. The spermatic cord was then dissected around. Ashlee drain was placed around it and was retracted out of the way. No indirect hernia present. There was a direct defect present. Contents were reduced. The transversalis fascia was then sutured to the shelving edge using 2-0 Vicryl. A ProGrip mesh was then cut to size, which was then secured to Alex's ligament and then incorporated around the spermatic cord in the usual fashion and placed under the external oblique. The wound was then irrigated with copious amounts of irrigation. The external oblique was then closed using 3-0 Vicryl in running fashion recreating the external ring. The subcutaneous tissue was then reapproximated with 3-0 Vicryl and the skin was then closed using 4-0 Monocryl in a running subcuticular fashion. The area was then washed and dried and sterile bandages were applied. The abdomen was then washed and dried, Skin Affix was placed over the incisions. The patient tolerated procedure well without any complications. He was taken to the recovery room in stable condition. Job ID: [id number] DocumentID: [id number] Dictated Date: 05/15/2019 13:38:02 Sales Management Intern Date: 05/15/2019 19:13:54 Dictated By: ENMANUEL LUCIO DO
--- NOTE | 2019-05-20 08:43 | Anesthesia-General Post-Op ---
General Significant Intra-Op Events Notes late entry Post Op Complications Complications None Follow Up Care/Instructions Patient Instructions None needed. Anesthesia/Patient Condition Patient Condition Patient is doing well, no complaints, stable vital signs, no apparent adverse anesthesia problems. No complications reported per nursing. DEEP COSME CRNA May 20, 2019 08:43
== END 2019-05-15 12:15 | disposition home or self-care (01) ==
LOC: SDC 07:50
PROVIDERS: ATTEND Surgery
DX: K40.90 Unilateral inguinal hernia, without obstruction or gangrene, not specified as recurrent (principal); F17.210 Nicotine dependence, cigarettes, uncomplicated; Z79.899 Other long term (current) drug therapy; Z82.49 Family history of ischemic heart disease and other diseases of the circulatory system; Z80.0 Family history of malignant neoplasm of digestive organs
CPT/HCPCS: 87081

== ENCOUNTER → 2020-01-29 | Outpatient (CLI) | payer SELFPAY ==
[~2020-01-29] MED LIST changes: +ACHD5005 PO; +DOCU-143 PO; +HOLD METFORMIN - RECEIVED CONTRAST 20 ML VIAL IV SCH; +IOHEXOL 350 MG/ML 100 ML (OMNIPAQUE 350) VIAL IV ONE; +NS 100 ML (IVPB) BAG IV ONE
--- NOTE | 2020-01-29 10:33 | Diagnostic Imaging Report ---
PROCEDURE: CT head with and without contrast. TECHNIQUE: Multiple contiguous axial images were obtained through the brain before and after the administration of intravenous contrast. Auto Exposure Controls were utilized during the CT exam to meet ALARA standards for radiation dose reduction. INDICATION: Bilateral arm numbness, tingling, difficulty with speech. Compared with head CT 03/29/2016 FINDINGS: There is no hemorrhage, hydrocephalus, edema, mass, mass effect or evidence for an elevation to the intracerebral pressures. After the administration of IV contrast, there was no abnormal parenchymal or meningeal enhancement. There is normal enhancement of the major dural venous sinuses. There are no abnormal extra-axial fluid collections. Mastoid air cells, middle ear cavities, paranasal sinuses and calvarium unremarkable. IMPRESSION: Normal pre and post IV contrast-enhanced CT head. Dictated by: Dictated on workstation # [id number]
== END ==
LOC: RAD 09:41
PROVIDERS: ATTEND Nurse Practitioner Family
DX: R29.898 Other symptoms and signs involving the musculoskeletal system (principal); R47.81 Slurred speech
CPT/HCPCS: 70470

== ENCOUNTER 2022-06-13 08:09 | Emergency (ER) | payer SELFPAY ==
[~2022-06-13] VITALS: Ht 165.1 cm; Wt 54.0 kg
[~2022-06-13 08:09] MED LIST changes: -HOLD METFORMIN - RECEIVED CONTRAST 20 ML VIAL IV SCH; -IOHEXOL 350 MG/ML 100 ML (OMNIPAQUE 350) VIAL IV ONE; -NS 100 ML (IVPB) BAG IV ONE
--- NOTE | 2022-06-13 09:02 | ED General ---
General Chief Complaint: General Problems/Pain Stated Complaint: RT SIDE NUMB | LABORED BREATHING Nursing Triage Note: PT AMB TO RM 7 WITH WITH COMPLAINT OF RIGHT EYE PAIN, HEADACHE, SOA, AND ALL OVER NUMBNESS. STATES SYMPTOMS STARTED YESTERDAY. Source of Information: Patient, Family, Old Records Exam Limitations: No Limitations (LAN YUAN) History of Present Illness Date Seen by Provider: Jun 13, 2022 Time Seen by Provider: 08:36 Initial Comments Mr. Roberts is a 46 yo M with PMH of hernia repair & previous episodes of numbness of unknown origin, who presents to the ED today with one day hx of right sided eye pain and generalized whole body numbness and weakness with SOA upon excursion. He states that the pain in his right eye is made worse by opening and closing his eye and nothing seems to make it better. He is blind in the left eye an expressed concern for the condition of his right eye. He denies N/V/F/C/D, his last BM was today and normal per his usual and he denies dysuria but does endorse bladder pain and urgency since his hernia repair with mesh. Timing/Duration: 1 Day Severity: Mild Modifying Factors: worse with Movement Associated Systoms: Chest Pain (right sided); No Fever/Chills; Headaches; No Nausea/Vomiting, No Seizure; Shortness of Air; No Syncope; Weakness (LAN YUAN) Allergies and Home Medications Allergies Coded Allergies: No Known Drug Allergies (Unverified , 05/09/19) Patient Home Medication List Home Medication List Reviewed: Yes (CORBY DAHL MD) Docusate Sodium (Colace) 100 Mg Capsule, 100 MG PO BID Prescribed by: ENMANUEL ALEJANDRA on 05/15/19 1020 Erythromycin Base (Erythromycin Opthalmic Ointment) 5 Mg/Gram (0.5 %) Oint...g., 0 OP Q6H Prescribed by: CORBY DAHL on 06/13/22 1150 Hydrocodone Bit/Acetaminophen (Lortab 5 Mg Tablet) 1 Tab Tab, 1-2 TAB PO Q6H PRN for PAIN-MODERATE Prescribed by: ENMANUEL ALEJANDRA on 05/15/19 1020 Review of Systems Review of Systems Constitutional: No chills, No diaphoresis, No dizziness, No fever; weakness EENTM: blurred vision, eye pain; No hearing loss, No hoarseness, No mouth swelling Respiratory: No cough, No hemoptysis; short of breath Cardiovascular: chest pain (right sided); No edema, No palpitations Gastrointestinal: No diarrhea, No nausea, No vomiting Musculoskeletal: No back pain, No joint pain, No joint swelling, No muscle pain; muscle weakness Skin: No pruritus, No rash Psychiatric/Neurological: Headache, Numbness, Tingling, Weakness (LAN YUAN) Past Umbijxw-Grvkqe-Ytotij Hx Patient Social History Tobacco Use?: Yes Tobacco type used: Cigarettes Smoking Status: Current Everyday Smoker Use of E-Cig and/or Vaping dev: No Substance use?: No Alcohol Use?: Yes Alcohol Frequency: Once in a while Pt feels they are or have been: No (LAN YUAN) Seasonal Allergies Seasonal Allergies: No (LAN YUAN) Past Medical History Surgeries: Yes Abdominal (hernia repair) Respiratory: No Currently Using CPAP: No Currently Using BIPAP: No Cardiac: No Neurological: No Reproductive Disorders: No Sexually Transmitted Disease: No HIV/AIDS: No Genitourinary: No Gastrointestinal: No Musculoskeletal: No Rheumatoid Arthritis Endocrine: No HEENT: Yes 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 oz. 54.166489ug; 19.00 BMI Method:Estimated General Appearance: No Apparent Distress, Thin Eyes: Bilateral Eye Normal Inspection, Bilateral Eye PERRL, Bilateral Eye EOMI HEENT: PERRL/EOMI, TMs Normal (right sided TM has some ecymosis ) Neck: Full Range of Motion, Non Tender, Supple Respiratory: Chest Non Tender, No Accessory Muscle Use, No Respiratory Distress, Crackles, Expiration, Inspiration Cardiovascular: Regular Rate, Rhythm, No Edema, No Gallop, No Murmur, Normal Peripheral Pulses Gastrointestinal: Normal Bowel Sounds, No Pulsatile Mass, Soft Back: No CVA Tenderness, No Vertebral Tenderness Extremity: Normal Capillary Refill, Normal Range of Motion, No Calf Tenderness, No Pedal Edema Neurologic/Psychiatric: Alert, Oriented x3, No Motor/Sensory Deficits, Normal Mood/Affect, college president II-XII Norm as Tested Skin: Normal Color, Warm/Dry Lymphatic: No Adenopathy (LAN YUAN) Procedures/Interventions Eye : Location: right eye Anesthesia (gtts): Tetracaine Progress/Procedure Conclusion Abrasion noted at the 6 o'clock position with florescein dye uptake in a horizontal manner just inferior to the iris (CORBY DAHL MD) Progress/Results/Core Measures Suspected Sepsis SIRS Temperature: Pulse: 56 Respiratory Rate: 16 Blood Pressure 125 /93 Mean: 104 (LAN YUAN) Results/Orders Lab Results Laboratory Tests Test 06/13/22 09:11 06/13/22 09:34 06/13/22 10:06 Range/Units Urine Color YELLOW Urine Clarity CLEAR Urine pH 7.5 5-9 Urine Specific [place] <=1.005 1.016-1.022 Urine Protein NEGATIVE NEGATIVE Urine Glucose (UA) NEGATIVE NEGATIVE Urine Ketones NEGATIVE NEGATIVE Urine Nitrite NEGATIVE NEGATIVE Urine Bilirubin NEGATIVE NEGATIVE Urine Urobilinogen 0.2 < = 1.0 MG/DL Urine Leukocyte Esterase NEGATIVE NEGATIVE Urine RBC (Auto) NEGATIVE NEGATIVE Urine RBC NONE /HPF Urine WBC NONE /HPF Urine Crystals NONE /LPF Urine Bacteria NEGATIVE /HPF Urine Casts NONE /LPF Urine Mucus NEGATIVE /LPF Urine Culture Indicated NO White Blood Count 7.4 4.3-11.0 10^3/uL Red Blood Count 5.23 4.30-5.52 10^6/uL Hemoglobin 16.1 13.3-17.7 g/dL Hematocrit 47 40-54 % Mean Corpuscular Volume 90 80-99 fL Mean Corpuscular Hemoglobin 31 25-34 pg Mean Corpuscular Hemoglobin Concent 34 32-36 g/dL Red Cell Distribution Width 13.1 10.0-14.5 % Platelet Count 282 130-400 10^3/uL Mean Platelet Volume 8.9 L 9.0-12.2 fL Immature Granulocyte % (Auto) 0 % Neutrophils (%) (Auto) 76 H 42-75 % Lymphocytes (%) (Auto) 13 12-44 % Monocytes (%) (Auto) 8 0-12 % Eosinophils (%) (Auto) 1 0-10 % Basophils (%) (Auto) 1 0-10 % Neutrophils # (Auto) 5.6 1.8-7.8 10^3/uL Lymphocytes # (Auto) 1.0 1.0-4.0 10^3/uL Monocytes # (Auto) 0.6 0.0-1.0 10^3/uL Eosinophils # (Auto) 0.1 0.0-0.3 10^3/uL Basophils # (Auto) 0.0 0.0-0.1 10^3/uL Immature Granulocyte # (Auto) 0.0 0.0-0.1 10^3/uL Prothrombin Time 13.7 12.2-14.7 SEC INR Comment 1.0 0.8-1.4 Activated Partial Thromboplast Time 33 24-35 SEC D-Dimer 0.05 0.00-0.49 UG/ML Sodium Level 138 135-145 MMOL/L Potassium Level 4.3 3.6-5.0 MMOL/L Chloride Level 106 98-107 MMOL/L Carbon Dioxide Level 22 21-32 MMOL/L Anion Gap 10 5-14 MMOL/L Blood Urea Nitrogen 10 7-18 MG/DL Creatinine 0.83 0.60-1.30 MG/DL Estimat Glomerular Filtration Rate 111 BUN/Creatinine Ratio 12 Glucose Level 97 70-105 MG/DL Calcium Level 9.1 8.5-10.1 MG/DL Corrected Calcium 8.8 8.5-10.1 MG/DL Total Bilirubin 0.5 0.1-1.0 MG/DL Aspartate Amino Transf (AST/SGOT) 20 5-34 U/L Alanine Aminotransferase (ALT/SGPT) 19 0-55 U/L Alkaline Phosphatase 50 40-136 U/L Troponin I < 0.028 <0.028 NG/ML Total Protein 7.0 6.4-8.2 GM/DL Albumin 4.4 3.2-4.5 GM/DL Glucometer 105 70-110 MG/DL (CORBY DAHL MD) My Orders Orders - CORBY ADHL MD Cbc With Automated Diff (06/13/22 09:11) Protime With Inr (06/13/22 09:11) Partial Thromboplastin Time (06/13/22 09:11) Comprehensive Metabolic Panel (06/13/22 09:11) Fibrin Degradation Products (06/13/22 09:11) Troponin I Ruben (06/13/22 09:11) Ua Culture If Indicated (06/13/22 09:11) Ekg Tracing (06/13/22 09:11) Accucheck Stat ONCE (06/13/22 09:11) Ed Iv/Invasive Line Start (06/13/22 09:11) Ed Iv/Invasive Line Start (06/13/22 09:11) Vital Signs Stroke Patient Q15M (06/13/22 09:11) Ct Head Wo-R/O Stroke (06/13/22 09:11) O2 (06/13/22 09:11) Intake & Output 06,14,22 (06/13/22 09:11) Monitor-Rhythm Ecg Trace Only (06/13/22 09:11) Dysphagia Screening Tool Q10MX1 (06/13/22 09:11) Post Thrombolytic Adminstratio (06/13/22 09:11) Tetracaine 0.5% Ophth Lakia Sdv (Tetracai (06/13/22 09:15) Fluorescein Strips (Ylbip-O-Dapufa) (06/13/22 09:15) Balanced Salt Irrigation Soln (Bss Irrig (06/13/22 09:15) (CORBY DAHL MD) Medications Given in ED (CORBY DAHL MD) Vital Signs/I&O 06/13/22 06/13/22 08:20 11:55 Temp 36.2 36.2 Pulse 56 56 Resp 16 16 B/P (MAP) 125/93 (104) 118/80 Pulse Ox 97 97 O2 Delivery Room Air Room Air (CORBY DAHL MD) Vital Signs/I&O Capillary Refill : Less Than 3 Seconds (LAN YUAN) Blood Pressure Mean: 104 Progress Note : Time: 11:41 Progress Note Patient seen and evaluated by me, 46-year-old with right eye pain, "blurry vision", whole body "numbness" which she states is worse on the right. Patient states he woke with symptoms. Approximately 5 AM evaluation today includes physical exam, stroke protocol which includes CBC, chemistry, D-dimer, coags, EKG and CT noncontrast brain. Pertinent physical exam findings significant watering of the right eye with equal pupils bilaterally extraocular muscles are intact. Heart is regular, lungs a little rhonchus no respiratory distress or hypoxia noted. Abdomen is soft. Neuro exam, the patient states subjective numbness more to the right upper and lower extremity than the left. No facial anesthesia. Cranial nerves are intact. Cerebellar testing including rpyxuz-os-sulm normal. Normal strength. Patient with a very flat affect. Differential diagnosis based on history and physical, corneal abrasion, conjunctivitis, acute exacerbation of chronic neuropathy, atypical stroke. Labs reviewed, all within normal limits, CBC, Chem-12, D-dimer and coags. EKG shows normal sinus rhythm bradycardic at 52 beats a minute. No ectopy. No ST segment change. CT head noncontrast negative. Low clinical suspicion for TIA/CVA secondary to history and physical exam. He did wake up with symptoms and he states they are improving on arrival. He has had similar symptoms in the past. Risk factor includes smoking history. No hypertension. No diabetes. He did state positive family history and uncles of fairly young cerebrovascular disease. He has no findings other than subjective decreased sensation in the right upper and lower extremity. Recommend close follow-up with his primary care physician. He states his last visit was 2 or 3 months ago. Strongly encouraged smoking cessation. Will provide antibiotics as a corneal abrasion was discovered at approximately the 6 o'clock position just below the iris in the right eye. No obvious foreign body. Visual acuity is 20/20 out of the right eye. Return precautions provided. Patient verbalized understanding. All questions are sought and answered. Patient is stable for discharge (CORBY DAHL MD) ECG Initial ECG Impression Date: Jun 13, 2022 Initial ECG Impression Time: 09:48 Initial ECG Rate: 52 Initial ECG Rhythm: S.Kyle Initial ECG Intervals: Normal Initial ECG Impression: Normal (CORBY DAHL MD) Diagnostic Imaging Diagonstic Imaging: CT Comments [facility] [place], [place] NAME: EMILI ROBERTS [facility] REC#: [id number] PT STATUS: REG ER : 1975 PHYSICIAN: CORBY DAHL MD ADMIT DATE: 06/13/22/ER Draft Date of Exam:06/13/22 CT HEAD WO-R/O STROKE INDICATION: Right-sided numbness and right eye pain. TECHNIQUE: Multiple contiguous axial images were obtained through the brain without the use of intravenous contrast. Auto Exposure Controls were utilized during the CT exam to meet ALARA standards for radiation dose reduction. Comparison made to 01/29/2020. FINDINGS: There were no extra-axial fluid collections. No intracranial hemorrhage. No intracranial mass or mass effect. No midline shift. The ventricles are normal in size and position. Calvarial windows are unremarkable. IMPRESSION: Negative noncontrast brain CT. Dictated on workstation # [id number] Dict: 06/13/22 1049 Trans: 06/13/22 1053 [id number] Interpreted by: LIZ VAZQUEZ MD Electronically signed by: (CORBY DAHL MD) Counseling-Symptomatic: 3-10 Minutes Follow-up with PCP to: Discuss Further Options (CORBY DAHL MD) Departure Impression Primary Impression: Paresthesia Additional Impression: Corneal abrasion, right Qualified Codes: S05.01XA - Injury of conjunctiva and corneal abrasion without foreign body, right eye, initial encounter Disposition: HOME, SELF-CARE Condition: Improved Departure-Patient Inst. Decision time for Depature: 11:48 (CORBY DAHL MD) Referrals: [facility] (PCP/Family) Primary Care Physician Patient Instructions: Paresthesia (DC), Corneal Abrasion ED Add. Discharge Instructions: Use the antibiotic ointment as prescribed for the next 5 days. Drink plenty of fluids to stay well-hydrated. Cxxr-rnw-qxkyxee Tylenol or ibuprofen 2 extra strength Tylenol or 2 ibuprofen every 6 hours with food as needed for pain. Cool compresses to the right eye may help with eye discomfort. Please call to make a follow-up appointment with [facility] to make sure that your right eye is healing well. If you develop any further numbness especially with weakness or loss of bowel or bladder function please return to the emergency department for reevaluation. Scripts Erythromycin Base (Erythromycin Opthalmic Ointment) 5 Mg/Gram (0.5 %) Oint...g. 0 OP Q6H for 5 Days, #1 EA 1/2 inch Prov: CORBY DAHL MD 06/13/22 Verification and Attestation of Medical Student E/M Service A medical student performed and documented this service in my presence. I reviewed and verified all information documented by the medical student and made modifications to such information, when appropriate. I personally performed the physical exam and medical decision making. Corby Dahl, Jun 13, 2022,11:50 (CORBY DAHL MD) Images Eye 1 - Abrasion, Dye uptake (fluorescein) (CORBY DAHL MD) Copy Copies To 1: CARLOS MORENO DAVID Jun 13, 2022 09:02 CORBY DAHL MD Jun 13, 2022 11:43
[2022-06-13] MEDS ORDERED: BSS 15 ML IR ONE (09:15)
[2022-06-13] MEDS ORDERED: TETRACAINE 0.5% OPHTH SOLN 4 ML BTL (SINGLE DOSE ONLY) OU ONE (09:15)
[2022-06-13] MEDS ORDERED: FLUORESCEIN (FLUOR-I-STRIPS) 1 MG STRP OU ONE (09:15)
[2022-06-13 09:28] LABS: BILIRUBIN,URINE NEGATIVE (NEGATIVE); CLARITY,URINE CLEAR; COLOR,URINE YELLOW; GLUCOSE, URINE (UA) NEGATIVE (NEGATIVE); KETONES,URINE NEGATIVE (NEGATIVE); LEUKOCYTE ESTERASE ,URINE NEGATIVE (NEGATIVE); NITRITE,URINE NEGATIVE (NEGATIVE); PH,URINE 7.5 (5-9); PROTEIN,URINE NEGATIVE (NEGATIVE)
[2022-06-13 09:36] LABS: BACTERIA,URINE NEGATIVE /HPF
[2022-06-13 09:40] LABS: BASOPHILS % (AUTO) 1 % (0-10); EOSINOPHILS # (AUTO) 0.1 10^3/uL (0.0-0.3); EOSINOPHILS % (AUTO) 1 % (0-10); HEMATOCRIT 47 % (40-54); HEMOGLOBIN 16.1 g/dL (13.3-17.7); LYMPHOCYTES % (AUTO) 13 % (12-44); MEAN CORPUSCULAR HEMOGLOBIN 31 pg (25-34); MEAN CORPUSCULAR HGB CONC 34 g/dL (32-36); MEAN CORPUSCULAR VOLUME 90 fL (80-99); MEAN PLATELET VOLUME 8.9 fL (9.0-12.2); MONOCYTES # (AUTO) 0.6 10^3/uL (0.0-1.0); MONOCYTES % (AUTO) 8 % (0-12); NEUTROPHILS # (AUTO) 5.6 10^3/uL (1.8-7.8); NEUTROPHILS % (AUTO) 76 % (42-75); PLATELET COUNT 282 10^3/uL (130-400); WHITE BLOOD COUNT 7.4 10^3/uL (4.3-11.0)
[2022-06-13 10:08] LABS: ALBUMIN 4.4 GM/DL (3.2-4.5)
[2022-06-13 10:09] LABS: CHLORIDE 106 MMOL/L (98-107); POTASSIUM 4.3 MMOL/L (3.6-5.0); SODIUM 138 MMOL/L (135-145)
[2022-06-13 10:10] LABS: CALCIUM 9.1 MG/DL (8.5-10.1)
[2022-06-13 10:11] LABS: GLUCOSE 97 MG/DL (70-105)
[2022-06-13 10:12] LABS: CARBON DIOXIDE 22 MMOL/L (21-32)
[2022-06-13 10:13] LABS: BILIRUBIN,TOTAL 0.5 MG/DL (0.1-1.0)
[2022-06-13 10:14] LABS: ALKALINE PHOSPHATASE 50 U/L (40-136)
[2022-06-13 10:15] LABS: CREATININE SERUM 0.83 MG/DL (0.60-1.30); FIBRIN DEGRADATION PRODUCTS 0.05 UG/ML (0.00-0.49); GFR ESTIMATED 111; PROTHROMBIN TIME PATIENT 13.7 SEC (12.2-14.7)
[2022-06-13 10:16] LABS: BUN/CREATININE RATIO 12
[2022-06-13 10:17] LABS: ALANINE AMINOTRANSFERASE 19 U/L (0-55)
--- NOTE | 2022-06-13 10:54 | Diagnostic Imaging Report ---
INDICATION: Right-sided numbness and right eye pain. TECHNIQUE: Multiple contiguous axial images were obtained through the brain without the use of intravenous contrast. Auto Exposure Controls were utilized during the CT exam to meet ALARA standards for radiation dose reduction. Comparison made to 01/29/2020. FINDINGS: There were no extra-axial fluid collections. No intracranial hemorrhage. No intracranial mass or mass effect. No midline shift. The ventricles are normal in size and position. Calvarial windows are unremarkable. IMPRESSION: Negative noncontrast brain CT. Dictated by: Dictated on workstation # [id number]
[2022-06-13] MEDS ORDERED: ERYT1OIN6 OP (11:50)
[2022-06-13 11:55] VITALS: BP 118/80
== END 2022-06-13 11:55 | disposition home or self-care (01) ==
LOC: EDUNIT# 08:09 → ER 08:12
DX: S05.01XA Injury of conjunctiva and corneal abrasion without foreign body, right eye, initial encounter (principal); R20.2 Paresthesia of skin; H54.40 Blindness, one eye, unspecified eye; F17.210 Nicotine dependence, cigarettes, uncomplicated; X58.XXXA Exposure to other specified factors, initial encounter
CPT/HCPCS: 36415; 70450; 80053; 81000; 82947; 84484; 85025; 85379; 85610; 85730; 93005; 93041

== ENCOUNTER → 2022-12-07 | Outpatient (CLI) | payer SELFPAY ==
[~2022-12-07] MED LIST changes: +ERYT1OIN6 OP
[2022-12-07 12:06] LABS: BASOPHILS # (AUTO) 0.1 10^3/uL (0.0-0.1); BASOPHILS % (AUTO) 1 % (0-10); EOSINOPHILS # (AUTO) 0.2 10^3/uL (0.0-0.3); EOSINOPHILS % (AUTO) 2 % (0-10); HEMATOCRIT 45 % (40-54); HEMOGLOBIN 15.3 g/dL (13.3-17.7); LYMPHOCYTES # (AUTO) 1.5 10^3/uL (1.0-4.0); LYMPHOCYTES % (AUTO) 18 % (12-44); MEAN CORPUSCULAR HEMOGLOBIN 31 pg (25-34); MEAN CORPUSCULAR HGB CONC 34 g/dL (32-36); MEAN CORPUSCULAR VOLUME 90 fL (80-99); MEAN PLATELET VOLUME 8.9 fL (9.0-12.2); MONOCYTES # (AUTO) 0.7 10^3/uL (0.0-1.0); MONOCYTES % (AUTO) 9 % (0-12); NEUTROPHILS # (AUTO) 5.9 10^3/uL (1.8-7.8); NEUTROPHILS % (AUTO) 71 % (42-75); PLATELET COUNT 313 10^3/uL (130-400); WHITE BLOOD COUNT 8.4 10^3/uL (4.3-11.0)
[2022-12-07 12:28] LABS: ALBUMIN 4.4 GM/DL (3.2-4.5); BILIRUBIN,TOTAL 0.4 MG/DL (0.1-1.0); CALCIUM 9.2 MG/DL (8.5-10.1); CREATININE SERUM 0.87 MG/DL (0.60-1.30); POTASSIUM 4.4 MMOL/L (3.6-5.0); TOTAL PROTEIN 6.7 GM/DL (6.4-8.2)
--- NOTE | 2022-12-07 14:35 | Diagnostic Imaging Report ---
PROCEDURE: US Scrotum w/ Duplex TECHNIQUE: Multiple realtime rodriguez images were obtained of the scrotum in various projections bilaterally. Color Doppler images were also obtained. INDICATION: Scrotal pain. COMPARISON: None. FINDINGS: The testicles are normal in size, shape and echogenicity. The right testis measures 4.2 x 1.7 x 2.6 cm. The left testis measures 3.6 x 1.8 x 2.8 cm. There is normal color flow Doppler signal of both testicles. No focal testicular mass is seen on either side. The right and left epididymides are unremarkable. There is no sonographic evidence of epididymitis. IMPRESSION: 1. Normal testicular sonogram. Dictated by: Dictated on workstation # [id number]
--- NOTE | 2022-12-07 14:47 | Diagnostic Imaging Report ---
INDICATION: 47-year-old male, urinary tract infection TECHNIQUE: Multiple real time rodriguez scale sonographic images were obtained of the urinary bladder. CORRELATION STUDY: None FINDINGS: There is presence of bilateral ureteral jets. Urinary bladder appearing unremarkable. No significant abnormal echogenic debris. Prostate gland appears enlarged, 4.7 x 4.2 x 2.8 cm. IMPRESSION: 1. Unremarkable appearance urinary bladder with visualization bilateral ureteral jets. 2. Prostamegaly, nonspecific. Dictated by: Dictated on workstation # [id number]
== END ==
LOC: RAD 11:35
PROVIDERS: ATTEND Registered Nurse Critical Care Medicine
DX: N50.82 Scrotal pain (principal); N50.812 Left testicular pain; N50.89 Other specified disorders of the male genital organs; G44.89 Other headache syndrome; N40.0 Benign prostatic hyperplasia without lower urinary tract symptoms
CPT/HCPCS: 36415; 76857; 76870; 80053; 85025; 87088; 87491; 87591